=== PATIENT | male | born 1985 | race Caucasian/White ===

== ENCOUNTER 2021-08-07 18:04 | Emergency (ER) | payer OTHER ==
[~2021-08-07] VITALS: Ht 190.5 cm; Wt 127.0 kg
[~2021-08-07 18:04] MED LIST: CARAFATE 1 GM TA1 G1 PO; PANTOPRAZOLE SO40 M1 PO
[2021-08-07] MEDS ORDERED: SUPER THERAVIT1 EACH PO (18:18)
[2021-08-07] MEDS ORDERED: CLARITIN10 MG PO (18:18)
[2021-08-07 19:15] LABS: URINE BILIRUBIN NEGATIVE (Negative); URINE BLOOD NEGATIVE (Negative); URINE CLARITY CLEAR; URINE COLOR YELLOW; URINE GLUCOSE-RANDOM NEGATIVE (Negative); URINE KETONES NEGATIVE (Negative); URINE LEUKOCYTES-REFLEX NEGATIVE (Negative); URINE NITRITE-REFLEX NEGATIVE (Negative); URINE PROTEIN NEGATIVE (Negative); URINE UROBILINOGEN 0.2 E.U./dl (0.2-1.0)
[2021-08-07 19:35] VITALS: BP 127/80
== END 2021-08-07 19:36 | disposition home or self-care (01) ==
LOC: M.ERS 18:04
PROVIDERS: Physician Assistant Medical
DX: K46.9 Unspecified abdominal hernia without obstruction or gangrene (principal); F32.9 Major depressive disorder, single episode, unspecified; F17.210 Nicotine dependence, cigarettes, uncomplicated; Z79.899 Other long term (current) drug therapy